=== PATIENT | female | born 1970 | race Caucasian/White ===

== ENCOUNTER 2017-03-25 16:55 | Emergency (ER) | payer OTHER ==
[~2017-03-25] VITALS: Ht 167.6 cm; Wt 63.5 kg
[~2017-03-25 16:55] MED LIST: CELEXA10 MG PO; CORDROL20 MG PO; FLEXERIL10 MG PO; NAPROXEN550 M1 PO; PRILOSEC40 MG PO; ULTRAM50 MG PO; ZITHROMAX250 MG PO
[2017-03-25] MEDS ORDERED: NAPROSYN500 MG PO (17:25)
[2017-03-25] MEDS ORDERED: 'PARAFON FORTE500 M1 PO (17:25)
== END 2017-03-25 17:58 | disposition home or self-care (01) ==
LOC: ED 16:55
DX: S46.911A Strain of unspecified muscle, fascia and tendon at shoulder and upper arm level, right arm, initial encounter (principal); F17.200 Nicotine dependence, unspecified, uncomplicated; X58.XXXA Exposure to other specified factors, initial encounter; Y93.89 Activity, other specified; Y92.89 Other specified places as the place of occurrence of the external cause; Y99.8 Other external cause status

== ENCOUNTER 2019-12-30 14:47 | Emergency (ER) | payer OTHER ==
[~2019-12-30] VITALS: Ht 167.6 cm; Wt 52.2 kg
[~2019-12-30 14:47] MED LIST changes: +'PARAFON FORTE500 M1 PO; +NAPROSYN500 MG PO
[2019-12-30] MEDS ORDERED: NAPROSYN500 MG PO (17:20)
== END 2019-12-30 17:21 | disposition home or self-care (01) ==
LOC: ED 14:47
DX: S20.212A Contusion of left front wall of thorax, initial encounter (principal); J45.909 Unspecified asthma, uncomplicated; F17.200 Nicotine dependence, unspecified, uncomplicated; Z79.899 Other long term (current) drug therapy; W22.8XXA Striking against or struck by other objects, initial encounter; Y93.89 Activity, other specified; Y92.89 Other specified places as the place of occurrence of the external cause; Y99.8 Other external cause status

== ENCOUNTER → 2021-07-06 | Outpatient (CLI) | payer OTHER | END | disposition home or self-care (01) | LOC: LAB 15:57 | PROVIDERS: ATTEND Family Medicine | DX: J40 Bronchitis, not specified as acute or chronic (principal); R53.83 Other fatigue; R79.89 Other specified abnormal findings of blood chemistry; E55.9 Vitamin D deficiency, unspecified; E78.5 Hyperlipidemia, unspecified ==

== ENCOUNTER → 2021-11-26 | Outpatient (CLI) | payer OTHER ==
[2021-11-26 13:20] LABS: BASO % 0.4 % (0.0-1.0); EOS # 0.1 10*3/uL (0.0-0.4); EOS % 1.4 % (1.0-4.0); HEMATOCRIT 37.8 % (37.0-47.0); LYMPH # 1.1 10*3/uL (1.3-4.4); LYMPH % 14.5 % (27.0-41.0); MEAN CELL VOLUME 95.7 fl (81.0-99.0); MEAN CORPUSCULAR HGB 31.4 pg (27.0-31.0); MEAN CORPUSCULAR HGB CONC 32.8 g/dl (33.0-37.0); MEAN PLATELET VOLUME 9.5 fl (9.6-12.3); MONO # 0.4 10*3/uL (0.1-1.0); MONO % 4.9 % (3.0-9.0); NEUT % 78.5 % (47.0-73.0); PLATELET COUNT AUTOMATED 272 10*3/uL (130-400); RED BLOOD COUNT 3.95 10*6/uL (4.10-5.10); RED CELL DISTRI WIDTH 13.1 % (0-14.5); RETICULOCYTE % 0.97 % (0.50-2.50); WHITE BLOOD COUNT 7.7 10*3/uL (4.8-10.8)
[2021-11-26 13:20] LABS: BILIRUBIN Negative (Negative); BLOOD Negative (Negative); CLARITY Clear (Clear); COLOR Yellow (Yellow); GLUCOSE Negative (Negative); KETONE Negative (Negative); LEUKO ESTERASE Negative (Negative); NITRITE Negative (Negative); SPECIFIC GRAVITY <= 1.005 (1.001-1.030); UROBILINOGEN 0.2 E.U./dl (0.0-1.0)
[2021-11-26 13:34] LABS: BACTERIA TRACE; RBC 0-2 rbc/hpf (0-2); WBC 0-2 wbc/hpf (0-5)
[2021-11-26 13:38] LABS: ALBUMIN 3.1 gm/dl (3.1-4.5); ALKALINE PHOSPHATASE 73 U/L (45-117); BUN 10 mg/dl (7-24); CHLORIDE 111 mmol/L (98-107); CHOLESTEROL 143 mg/dL (<200); CREATININE 0.97 mg/dL (0.55-1.02); GAMMA GLUTAMYL TRANSPEPTIDASE 13 U/L (5-55); IRON 64 ug/dL (50-170); LDL CHOLESTEROL 78 mg/dL (9-159); SGOT/AST 12 IU/L (3-35); SGPT/ALT 15 U/L (12-78); SODIUM 140 mmol/L (136-145); TOTAL IRON BINDING CAPACITY 261 ug/dl (250-450); TOTAL PROTEIN 6.5 gm/dL (6.4-8.2); TRIGLYCERIDES 109 mg/dl (<150)
[2021-11-26 14:13] LABS: VITAMIN D, 25-HYDROXY 14.1 ng/mL (30-100)
[2021-11-26 14:14] LABS: FERRITIN 147.5 ng/mL (10.0-291.0)
== END | disposition home or self-care (01) ==
LOC: LAB 12:52
PROVIDERS: ATTEND Family Medicine
DX: J40 Bronchitis, not specified as acute or chronic (principal); R79.89 Other specified abnormal findings of blood chemistry; R53.83 Other fatigue; E78.5 Hyperlipidemia, unspecified; R74.8 Abnormal levels of other serum enzymes; E55.9 Vitamin D deficiency, unspecified

== ENCOUNTER → 2023-03-22 | Day surgery (SDC) | payer OTHER ==
[~2023-03-22] VITALS: Ht 167.6 cm; Wt 54.4 kg
[~2023-03-22] MED LIST changes: +PROVENTIL HFA6.7 GM INH; +SINGULAIR4 M1 INH; +SYMB160 INH; +[UNRECOGNIZED DRUG - OTHER] PO
[2023-03-22 07:33] VITALS: BP 123/73
[2023-03-22 08:15] VITALS: BP 72/45
[2023-03-22 08:26] VITALS: BP 85/52
[2023-03-22 08:41] VITALS: BP 83/62
[2023-03-22 08:51] VITALS: BP 93/69
== END ==
LOC: SDC 03-21 09:30
PROVIDERS: ATTEND Orthopaedic Surgery
DX: G56.03 Carpal tunnel syndrome, bilateral upper limbs (principal); J44.9 Chronic obstructive pulmonary disease, unspecified; M19.90 Unspecified osteoarthritis, unspecified site; F17.210 Nicotine dependence, cigarettes, uncomplicated; Z98.890 Other specified postprocedural states

== ENCOUNTER → 2023-06-06 | Outpatient (CLI) | payer OTHER ==
[2023-06-06 14:56] LABS: HEMATOCRIT 39.9 % (37.0-47.0); MEAN CELL VOLUME 97.8 fl (81.0-99.0); MEAN CORPUSCULAR HGB 32.4 pg (27.0-31.0); MEAN CORPUSCULAR HGB CONC 33.1 g/dl (33.0-37.0); MEAN PLATELET VOLUME 9.2 fl (9.6-12.3); PLATELET COUNT AUTOMATED 264 10*3/uL (130-400); RED BLOOD COUNT 4.08 10*6/uL (4.10-5.10); RED CELL DISTRI WIDTH 13.7 % (0-14.5); WHITE BLOOD COUNT 5.2 10*3/uL (4.8-10.8)
[2023-06-06 14:58] LABS: BILIRUBIN Negative (Negative); BLOOD Negative (Negative); CLARITY Clear (Clear); COLOR Yellow (Yellow); GLUCOSE Negative (Negative); KETONE Negative (Negative); LEUKO ESTERASE Negative (Negative); NITRITE Negative (Negative); PH 5.5 (4.5-8.0); UROBILINOGEN 0.2 E.U./dl (0.0-1.0)
[2023-06-06 15:25] LABS: PLATELET SUFFICIENCY NORMAL (NORMAL); TOTAL CELLS COUNTED 100 #CELLS
[2023-06-06 15:30] LABS: BASOPHILS 1 % (0-1)
[2023-06-06 15:36] LABS: MUCOUS TRACE
[2023-06-06 15:41] LABS: ALKALINE PHOSPHATASE 81 U/L (46-116); BUN 6 mg/dl (9-23); CHLORIDE 105 mmol/L (98-107); CHOLESTEROL 144 mg/dL (<200); LDL CHOLESTEROL 79 mg/dL (9-159); POTASSIUM 3.4 mmol/L (3.4-5.1); SGPT/ALT 11 U/L (10-49); T3 UPTAKE 26.7 % (22.4-36.7); THYROXINE (T4) TOTAL 5.6 ug/dl (4.5-10.9); TOTAL PROTEIN 6.7 gm/dL (6.0-8.0); TRIGLYCERIDES 89 mg/dl (<150)
[2023-06-06 17:36] LABS: VITAMIN D, 25-HYDROXY 23.7 ng/mL (30-100)
[2023-06-07 06:08] LABS: TOTAL PROTEIN, SERUM 6.4 g/dL (6.0-8.5)
[2023-06-07 08:09] LABS: THYROID PEROXIDASE (TPO) AB 564 IU/mL (0-34)
[2023-06-07 15:07] LABS: A/G RATIO 1.4 (0.7-1.7); ALBUMIN 3.7 g/dL (2.9-4.4); ALPHA-1-GLOBULIN 0.2 g/dL (0.0-0.4); ALPHA-2-GLOBULIN 0.6 g/dL (0.4-1.0); BETA GLOBULIN 0.7 g/dL (0.7-1.3); GAMMA GLOBULIN 1.1 g/dL (0.4-1.8); GLOBULIN, TOTAL 2.7 g/dL (2.2-3.9); M-SPIKE Not Observed g/dL (Not Observed)
[2023-06-07 16:08] LABS: THYROGLOBULIN ANTIBODY <1.0 IU/mL (0.0-0.9)
== END | disposition home or self-care (01) ==
LOC: US 01:39 → LAB 01:39 → US 15:00
PROVIDERS: ATTEND Family Medicine
DX: E55.9 Vitamin D deficiency, unspecified (principal); R79.89 Other specified abnormal findings of blood chemistry; R53.83 Other fatigue; E78.5 Hyperlipidemia, unspecified; E01.1 Iodine-deficiency related multinodular (endemic) goiter

== ENCOUNTER 2023-07-15 19:59 | Emergency (ER) | payer OTHER ==
[~2023-07-15] VITALS: Wt 58.1 kg
[2023-07-15] MEDS ORDERED: TRAMADOL HCL50 MG PO (21:42)
== END 2023-07-15 21:57 | disposition home or self-care (01) ==
LOC: ED 19:59
DX: M25.562 Pain in left knee (principal); M54.2 Cervicalgia; M79.642 Pain in left hand; M25.511 Pain in right shoulder; R11.0 Nausea; J44.9 Chronic obstructive pulmonary disease, unspecified; M19.90 Unspecified osteoarthritis, unspecified site; Z98.890 Other specified postprocedural states; V89.2XXA Person injured in unspecified motor-vehicle accident, traffic, initial encounter; Y93.89 Activity, other specified; Y92.410 Unspecified street and highway as the place of occurrence of the external cause; Y99.8 Other external cause status

== ENCOUNTER → 2023-08-23 | Outpatient (CLI) | payer OTHER ==
[~2023-08-23] MED LIST changes: +TRAMADOL HCL50 MG PO
== END | disposition home or self-care (01) ==
LOC: MRI 15:00
PROVIDERS: ATTEND Family Medicine
DX: S63.92XD Sprain of unspecified part of left wrist and hand, subsequent encounter (principal); M18.12 Unilateral primary osteoarthritis of first carpometacarpal joint, left hand; M19.032 Primary osteoarthritis, left wrist; X58.XXXD Exposure to other specified factors, subsequent encounter

== ENCOUNTER → 2024-01-12 | Outpatient (CLI) | payer OTHER | END | disposition home or self-care (01) | LOC: CARD 01:57 | PROVIDERS: ATTEND Internal Medicine Cardiovascular Disease | DX: I51.7 Cardiomegaly (principal); R07.89 Other chest pain; R06.02 Shortness of breath; R00.1 Bradycardia, unspecified; F17.200 Nicotine dependence, unspecified, uncomplicated ==

== ENCOUNTER → 2024-02-23 | Outpatient (CLI) | payer OTHER ==
[2024-02-23 09:37] LABS: BASO % 0.7 % (0.0-1.0); EOS # 0.1 10*3/uL (0.0-0.4); EOS % 3.2 % (1.0-4.0); HEMATOCRIT 45.8 % (37.0-47.0); LYMPH # 1.2 10*3/uL (1.3-4.4); LYMPH % 27.1 % (27.0-41.0); MEAN CORPUSCULAR HGB 31.4 pg (27.0-31.0); MEAN CORPUSCULAR HGB CONC 32.3 g/dl (33.0-37.0); MEAN PLATELET VOLUME 9.4 fl (9.6-12.3); MONO # 0.3 10*3/uL (0.1-1.0); MONO % 7.5 % (3.0-9.0); NEUT # 2.7 10*3/uL (2.3-7.9); NEUT % 61.3 % (47.0-73.0); PLATELET COUNT AUTOMATED 208 10*3/uL (130-400); RED BLOOD COUNT 4.72 10*6/uL (4.10-5.10); RED CELL DISTRI WIDTH 13.6 % (0-14.5); RETICULOCYTE % 1.11 % (0.50-2.50); WHITE BLOOD COUNT 4.4 10*3/uL (4.8-10.8)
[2024-02-23 09:40] LABS: BILIRUBIN Negative (Negative); BLOOD Negative (Negative); CLARITY Clear (Clear); COLOR Yellow (Yellow); GLUCOSE Negative (Negative); KETONE Negative (Negative); LEUKO ESTERASE Negative (Negative); NITRITE Negative (Negative); UROBILINOGEN 0.2 E.U./dl (0.0-1.0)
[2024-02-23 10:13] LABS: ALKALINE PHOSPHATASE 77 U/L (46-116); BUN 5 mg/dl (9-23); CHLORIDE 110 mmol/L (98-107); CHOLESTEROL 137 mg/dL (<200); GAMMA GLUTAMYL TRANSPEPTIDASE 11 U/L (0-73); LDL CHOLESTEROL 71 mg/dL (9-159); POTASSIUM 4.2 mmol/L (3.4-5.1); T3 UPTAKE 27.5 % (22.4-36.7); THYROXINE (T4) TOTAL 5.8 ug/dl (4.5-10.9); TOTAL PROTEIN 6.9 gm/dL (6.0-8.0); TRIGLYCERIDES 113 mg/dl (<150)
[2024-02-23 10:15] LABS: SGPT/ALT < 7 U/L (5-49)
[2024-02-23 10:43] LABS: VITAMIN D, 25-HYDROXY 9.1 ng/mL (30-100)
[2024-02-23 10:54] LABS: BACTERIA TRACE
== END | disposition home or self-care (01) ==
LOC: LAB 09:15
PROVIDERS: ATTEND Family Medicine
DX: E78.5 Hyperlipidemia, unspecified (principal); R79.89 Other specified abnormal findings of blood chemistry; R53.83 Other fatigue; E55.9 Vitamin D deficiency, unspecified; J44.9 Chronic obstructive pulmonary disease, unspecified; F17.200 Nicotine dependence, unspecified, uncomplicated; R06.02 Shortness of breath

== ENCOUNTER → 2024-10-29 | Outpatient (CLI) | payer OTHER ==
[2024-10-29 11:07] LABS: BASO # 0.1 10*3/uL (0.0-0.1); BASO % 0.6 % (0.0-1.0); EOS # 0.1 10*3/uL (0.0-0.4); MEAN CELL VOLUME 93.6 fl (81.0-99.0); MEAN CORPUSCULAR HGB 30.6 pg (27.0-31.0); MEAN CORPUSCULAR HGB CONC 32.7 g/dl (33.0-37.0); MEAN PLATELET VOLUME 9.6 fl (9.6-12.3); MONO # 0.6 10*3/uL (0.1-1.0); MONO % 6.7 % (3.0-9.0); NEUT # 7.5 10*3/uL (2.3-7.9); NEUT % 82.6 % (47.0-73.0); PLATELET COUNT AUTOMATED 252 10*3/uL (130-400); RED BLOOD COUNT 4.38 10*6/uL (4.10-5.10); RED CELL DISTRI WIDTH 13.6 % (0-14.5); RETICULOCYTE % 1.06 % (0.50-2.50); WHITE BLOOD COUNT 9.1 10*3/uL (4.8-10.8)
[2024-10-29 11:08] LABS: BILIRUBIN Negative (Negative); BLOOD Negative (Negative); CLARITY Clear (Clear); COLOR Yellow (Yellow); GLUCOSE Negative (Negative); KETONE Negative (Negative); LEUKO ESTERASE Negative (Negative); NITRITE Negative (Negative); SPECIFIC GRAVITY <= 1.005 (1.001-1.030); UROBILINOGEN 0.2 E.U./dl (0.0-1.0)
[2024-10-29 11:39] LABS: ALKALINE PHOSPHATASE 110 U/L (46-116); BUN 7 mg/dl (9-23); CHLORIDE 103 mmol/L (98-107); CHOLESTEROL 137 mg/dL (<200); GAMMA GLUTAMYL TRANSPEPTIDASE 14 U/L (0-73); LDL CHOLESTEROL 81 mg/dL (9-159); SGPT/ALT 9 U/L (5-49); TOTAL PROTEIN 7.7 gm/dL (6.0-8.0); TRIGLYCERIDES 64 mg/dl (<150)
[2024-10-29 11:40] LABS: VITAMIN D, 25-HYDROXY 32.7 ng/mL (30-100)
== END | disposition home or self-care (01) ==
LOC: LAB 10:15
PROVIDERS: ATTEND Family Medicine
DX: J44.9 Chronic obstructive pulmonary disease, unspecified (principal); R06.02 Shortness of breath; R79.89 Other specified abnormal findings of blood chemistry; R53.83 Other fatigue; E78.5 Hyperlipidemia, unspecified; E55.9 Vitamin D deficiency, unspecified

== ENCOUNTER → 2025-01-17 | Outpatient (CLI) | payer OTHER | END | disposition home or self-care (01) | LOC: US 07:26 | PROVIDERS: ATTEND Family Medicine | DX: N88.8 Other specified noninflammatory disorders of cervix uteri (principal); R10.84 Generalized abdominal pain; R10.2 Pelvic and perineal pain ==

== ENCOUNTER → 2025-02-14 | Outpatient (CLI) | payer OTHER ==
[~2025-02-14] MED LIST changes: +IOHEXOL 300 MG/ML 100 ML VIAL IV ONE; +IOHEXOL 300 MG/ML 100 ML VIAL ONE
== END | disposition home or self-care (01) ==
LOC: CT 00:41
PROVIDERS: ATTEND Family Medicine
DX: R10.84 Generalized abdominal pain (principal); R10.2 Pelvic and perineal pain; N70.11 Chronic salpingitis; M47.817 Spondylosis without myelopathy or radiculopathy, lumbosacral region